=== PATIENT | male | born 1990 | race Caucasian/White ===

== ENCOUNTER 2017-03-18 06:54 | Emergency (ER) | payer OTHER | END 2017-03-18 09:21 | disposition home or self-care (01) | LOC: ER1 06:54 | DX: S60.221A Contusion of right hand, initial encounter (principal); F17.200 Nicotine dependence, unspecified, uncomplicated; W01.0XXA Fall on same level from slipping, tripping and stumbling without subsequent striking against object, initial encounter; Y92.009 Unspecified place in unspecified non-institutional (private) residence as the place of occurrence of the external cause | CPT/HCPCS: 73130; 99283 ==

== ENCOUNTER 2022-04-22 02:40 | Emergency (ER) | payer OTHER ==
[2022-04-22 03:08] LABS: HEMOGLOBIN 15.9 gm/dl (14.0-17.5); RED BLOOD COUNT 5.43 M/UL (4.20-5.50); WHITE BLOOD COUNT 20.5 K/UL (4.5-11.0)
== END 2022-04-22 09:40 ==
LOC: ER1 02:40
PROVIDERS: Emergency Medicine; Family Medicine
DX: F41.9 Anxiety disorder, unspecified (principal); D72.829 Elevated white blood cell count, unspecified; F17.200 Nicotine dependence, unspecified, uncomplicated; Z20.822 Contact with and (suspected) exposure to COVID-19; N17.9 Acute kidney failure, unspecified; M62.82 Rhabdomyolysis; I10 Essential (primary) hypertension
CPT/HCPCS: 0240U; 71045; 80053; 80307; 81001; 82550; 82553; 82803; 83605; 83690; 83735; 84484; 85025; 85610; 87040; 87086; 93005; 96361; 96374; 96375; 96376; 99285; G0480; J2270; J2405

== ENCOUNTER 2022-04-29 22:13 | Emergency (ER) | payer OTHER ==
[2022-04-29 22:50] LABS: HEMOGLOBIN 11.3 gm/dl (14.0-17.5); RED BLOOD COUNT 3.92 M/UL (4.20-5.50); WHITE BLOOD COUNT 19.7 K/UL (4.5-11.0)
== END 2022-04-30 08:30 | disposition left against medical advice (07) ==
LOC: ER1 22:13
PROVIDERS: Physician Assistant; Student in an Organized Health Care Education/Training Program
DX: M60.9 Myositis, unspecified (principal); M54.50 Low back pain, unspecified; F15.10 Other stimulant abuse, uncomplicated; R61 Generalized hyperhidrosis; R00.0 Tachycardia, unspecified; R11.0 Nausea; R50.9 Fever, unspecified; F17.200 Nicotine dependence, unspecified, uncomplicated
CPT/HCPCS: 72128; 72132; 80053; 80307; 81001; 83605; 85025; 85652; 86140; 87040; 96365; 96375; 99283; J0692; Q9967

== ENCOUNTER 2022-06-03 01:06 | Emergency (ER) | payer OTHER ==
[2022-06-03 02:14] LABS: HEMOGLOBIN 12.1 gm/dl (14.0-17.5); RED BLOOD COUNT 4.28 M/UL (4.20-5.50); WHITE BLOOD COUNT 14.9 K/UL (4.5-11.0)
[2022-06-03 02:43] LABS: BUN/CREATININE RATIO 19 (0-10)
== END 2022-06-03 06:18 | disposition home or self-care (01) ==
LOC: ER1 01:06
PROVIDERS: Student in an Organized Health Care Education/Training Program
DX: S00.81XA Abrasion of other part of head, initial encounter (principal); S50.311A Abrasion of right elbow, initial encounter; S90.512A Abrasion, left ankle, initial encounter; R00.0 Tachycardia, unspecified; I12.9 Hypertensive chronic kidney disease with stage 1 through stage 4 chronic kidney disease, or unspecified chronic kidney disease; N18.9 Chronic kidney disease, unspecified; F17.210 Nicotine dependence, cigarettes, uncomplicated; Y04.2XXA Assault by strike against or bumped into by another person, initial encounter
CPT/HCPCS: 70450; 71045; 73080; 73610; 80053; 80307; 81001; 82550; 82553; 84484; 85025; 90471; 90715; 93005; 99284; G0480

== ENCOUNTER 2022-06-05 01:37 | Emergency (ER) | payer OTHER ==
[2022-06-05 02:38] LABS: HEMOGLOBIN 11.9 gm/dl (14.0-17.5); RED BLOOD COUNT 4.25 M/UL (4.20-5.50)
[2022-06-05 02:47] LABS: WHITE BLOOD COUNT 10.9 K/UL (4.5-11.0)
[2022-06-05 02:52] LABS: BUN/CREATININE RATIO 16 (0-10)
== END 2022-06-05 04:35 ==
LOC: ER1 01:37
PROVIDERS: Family Medicine
DX: R00.2 Palpitations (principal); R07.9 Chest pain, unspecified; E87.6 Hypokalemia
CPT/HCPCS: 71045; 80053; 82550; 82553; 84484; 85025; 93005; 99285